=== PATIENT | female | born 1945 | race Caucasian/White ===

== ENCOUNTER 2020-10-11 15:27 | Emergency (ER) | payer BC, MEDICARE ==
--- NOTE | 2020-10-11 16:37 | ED Physician Documentation ---
History of Present Illness - Stated complaint Stated Complaint: RIGHT ANKLE INJURY - Chief complaint Chief Complaint: Ext Problem - History obtained from History obtained from: Patient, Family - History of Present Illness Timing: Today Pain level max: 8 Pain level now: 8 - Additonal information Additional information: Patient is a 75-year-old female who presents to the emergency department [place] when she twisted her right ankle, now has increasing pain, unable to bear weight. Has swelling to the right ankle as well. Did not fall. No head, neck, back pain. Review of Systems Ten Systems: 10 systems reviewed and negative Constitutional: denies: Fever, Chills GI: denies: Vomiting, Diarrhea Neurologic: denies: Head injury, LOC PD PAST MEDICAL HISTORY - Past Medical History Past Medical History: Yes Cardiovascular: Hypertension, High cholesterol Respiratory: Asthma, Other Other Past Medical History: allergy - Past Surgical History Past Surgical History: No - Present Medications Home Medications: Ambulatory Orders Medication Instructions Recorded Confirmed Fluticasone [Flonase] 1 spray .ROUTE DAILY PM 10/11/20 10/11/20 HYDROcod/ACETAM 5/325 [[place] 5/325] 1 - 2 ea PO Q6H PRN #14 tablet 10/11/20 Loratadine [Claritin] 10 mg PO DAILY PM 10/11/20 10/11/20 Losartan Potassium 25 mg PO DAILY 10/11/20 10/11/20 Ondansetron Odt [Zofran] 4 mg TL Q6H PRN #10 tablet 10/11/20 Rosuvastatin Calcium [Crestor] 10 mg PO DAILY PM 10/11/20 10/11/20 - Allergies Allergies/Adverse Reactions: Allergies Allergy/AdvReac Type Severity Reaction Status Date / Time prochlorperazine Allergy Anaphylaxis Verified 10/11/20 15:38 [From Compazine] - Social History Does the pt smoke?: No Smoking Status: Never smoker Does the pt drink ETOH?: Yes Does the pt have substance abuse?: No - Immunizations Immunizations are current?: No Immunizations: TDAP >10years/unknown PD ED PE NORMAL - Vitals Vital signs reviewed: Yes - General General: Alert and oriented X 3, No acute distress - HEENT HEENT: Moist mucous membranes - Neck Neck: Supple, no meningeal sign - Cardiac Cardiac: RRR - Respiratory Respiratory: No respiratory distress, Clear bilaterally - Derm Derm: Warm and dry - Extremities Extremities: Other (R ankle - Tender to palpation over the lateral malleolus. Soft tissue swelling present. Neurovascularly intact. Otherwise normal examination of the right foot, ankle and lower extremity) - Neuro Neuro: Alert and oriented X 3 - Psych Psych: Normal mood, Normal affect Results - Vitals Vitals: Vital Signs - 24 hr 10/11/20 10/11/20 15:31 17:48 Temperature 36.3 C L 37.1 C Heart Rate 92 77 Respiratory 18 18 Rate Blood Pressure 133/67 H 148/81 H O2 Saturation 99 100 Oxygen O2 Source Room air - Rads (name of study) R ankle xray Radiology: Prelim report reviewed, EMP read contemporaneously, See rad report Procedures - Splint (location) R ankle Splint applied by: Physician, Tech Type of splint: Fiberglass, Short leg, Posterior, Stirrup Other: Patient tolerated well, No complications, Neurovascular intact PD MEDICAL DECISION MAKING - ED course Complexity details: reviewed results, re-evaluated patient, considered differential, d/w patient, d/w family ED course: 75-year-old female with a fall today, has an oblique fracture of the distal fibula at the level of the ankle mortise. Placed in a stirrup and posterior splint. Given crutches. We will place on pain medication for home. Neurovascularly intact. No other injuries. Patient counseled regarding signs and symptoms for which I believe and urgent re-evaluation would be necessary. Patient with good understanding of and agreement to plan and is comfortable going home at this time This document was made in part using voice recognition software. While efforts are made to proofread this document, sound alike and grammatical errors may occu r. No tenderness on the medial malleolus. IMPRESSION: Acute minimally displaced oblique fracture of the distal fibula to the level of the ankle mortise. Nondisplaced fracture of the medial malleolus with subtle sclerosis suggestive of a subacute fracture. Recommend clinical correlation. There is an additional punctate calcification at the medial malleolus which may represent an avulsion fracture. Findings favoring an osteochondral defect of the tibial plateau measuring approximately 4 mm. Large joint effusion and diffuse soft tissue swelling. Departure - Departure Disposition: 01 Home, Self Care Clinical Impression: Fracture of distal fibula Qualifiers: Encounter type: initial encounter Fracture type: closed Fracture morphology: unspecified fracture morphology Laterality: right Qualified Code(s): S82.831A - Other fracture of upper and lower end of right fibula, initial encounter for closed fracture Condition: Good Instructions: ED Fx Lower Ext Follow-Up: your,orthopedist within 1 week [Other] Prescriptions: HYDROcod/ACETAM 5/325 [[place] 5/325] 1 - 2 ea PO Q6H PRN #14 tablet PRN Reason: Pain Ondansetron Odt [Zofran] 4 mg TL Q6H PRN #10 tablet PRN Reason: Nausea / Vomiting Comments: Follow-up with your orthopedist within 1 week for repeat evaluation. They will likely want to change you into a cast or a walking boot at that time. Take the copy of the x-rays with you. Do not drink alcohol or drive while on narcotic pain medicine. Note that many narcotic pain relievers also contain tylenol/acetaminophen. Please ensure that your total dose of acetaminophen from all sources does not exceed 3 grams (3000mg) per day. You may constipated on this medication, take a stool softener such as "Colace" twice a day while you are on it. Also recommend a dprg-lvm-blfuqod laxative such as senna or MiraLAX any day that you do not have a bowel movement. If you received narcotic pain medication in the emergency department, do not drive or operate machinery for the next 24 hours. FINDINGS: Bones: There is a mildly displaced oblique fracture through the distal fibula to the level of the ankle mortise. There is a nondisplaced fracture of the medial malleolus which demonstrates mild sclerosis and may represent a subacute fracture. There is a punctate calcification adjacent to the tip of the medial malleolus. Focal hypodensity in the medial aspect of the tibial plafond measuring approximately 4 mm. Benign-appearing sclerosis within the inferior calcaneus. Soft tissues: Large joint effusion. Diffuse soft tissue swelling most prominent overlying the lateral malleolus. IMPRESSION: Acute minimally displaced oblique fracture of the distal fibula to the level of the ankle mortise. Nondisplaced fracture of the medial malleolus with subtle sclerosis suggestive of a subacute fracture. Recommend clinical correlation. There is an additional punctate calcification at the medial malleolus which may represent an avulsion fracture. Findings favoring an osteochondral defect of the tibial plateau measuring approximately 4 mm. Large joint effusion and diffuse soft tissue swelling. Discharge Date/Time: 10/11/20 17:53
--- NOTE | 2020-10-11 16:43 | XRAY Report ---
PROCEDURE: Ankle 3 View RT INDICATIONS: R ankle pain, s/p fall TECHNIQUE: 3 views of the ankle were acquired. COMPARISON: None FINDINGS: Bones: There is a mildly displaced oblique fracture through the distal fibula to the level of the ank le mortise. There is a nondisplaced fracture of the medial malleolus which demonstrates mild sclerosi s and may represent a subacute fracture. There is a punctate calcification adjacent to the tip of the medial malleolus. Focal hypodensity in the medial aspect of the tibial plafond measuring approximate ly 4 mm. Benign-appearing sclerosis within the inferior calcaneus. Soft tissues: Large joint effusion. Diffuse soft tissue swelling most prominent overlying the lateral malleolus. IMPRESSION: Acute minimally displaced oblique fracture of the distal fibula to the level of the ankle mortise. Nondisplaced fracture of the medial malleolus with subtle sclerosis suggestive of a subacute fracture . Recommend clinical correlation. There is an additional punctate calcification at the medial malleol us which may represent an avulsion fracture. Findings favoring an osteochondral defect of the tibial plateau measuring approximately 4 mm. Large joint effusion and diffuse soft tissue swelling. Reviewed by: Manish Ritchie DO on 10/11/2020 3:41 PM SHANTE Approved by: Manish Ritchie DO on 10/11/2020 3:41 PM SHANTE Station ID: [id number]
[2020-10-11] MEDS ORDERED: HYDROcod/ACETAM 5/325 MG TABLET PO STA (16:59)
[2020-10-11 17:49] VITALS: BP 148/81
== END 2020-10-11 17:53 | disposition home or self-care (01) ==
LOC: ED 15:27
DX: S82.831A Other fracture of upper and lower end of right fibula, initial encounter for closed fracture (principal); S82.54XA Nondisplaced fracture of medial malleolus of right tibia, initial encounter for closed fracture; X50.1XXA Overexertion from prolonged static or awkward postures, initial encounter; Y93.01 Activity, walking, marching and hiking; Y92.832 Beach as the place of occurrence of the external cause; I10 Essential (primary) hypertension
CPT/HCPCS: 29515; 73610; 99283; 99284; A9270